=== PATIENT | male | born 1980 | race Caucasian/White ===

== ENCOUNTER 2018-01-26 17:48 | Emergency (ER) | payer MEDICAID, OTHER ==
[~2018-01-26] VITALS: Ht 188 cm; Wt 98.4 kg
[2018-01-26 18:00] VITALS: BP 149/88
[2018-01-26 18:39] VITALS: BP 136/86
== END 2018-01-26 18:39 | disposition home or self-care (01) ==
LOC: MED 17:48
DX: S60.221A Contusion of right hand, initial encounter (principal); F17.210 Nicotine dependence, cigarettes, uncomplicated; W22.01XA Walked into wall, initial encounter; Y93.89 Activity, other specified; Y92.89 Other specified places as the place of occurrence of the external cause; Y99.8 Other external cause status
CPT/HCPCS: 73130; 99284; Q0092

== ENCOUNTER 2018-03-26 14:54 | Emergency (ER) | payer OTHER ==
[~2018-03-26] VITALS: Ht 188 cm; Wt 95.3 kg
[2018-03-26 15:06] VITALS: BP 129/79
[2018-03-26 15:39] VITALS: BP 128/75
== END 2018-03-26 15:40 | disposition home or self-care (01) ==
LOC: MED 14:54
DX: S21.112A Laceration without foreign body of left front wall of thorax without penetration into thoracic cavity, initial encounter (principal); F17.210 Nicotine dependence, cigarettes, uncomplicated; R03.0 Elevated blood-pressure reading, without diagnosis of hypertension; X58.XXXA Exposure to other specified factors, initial encounter; Y93.89 Activity, other specified; Y92.89 Other specified places as the place of occurrence of the external cause; Y99.8 Other external cause status
CPT/HCPCS: 99281

== ENCOUNTER 2018-06-10 10:36 | Emergency (ER) | payer OTHER ==
[~2018-06-10] VITALS: Ht 185.4 cm; Wt 94.1 kg
[2018-06-10 10:41] VITALS: BP 129/67
--- NOTE | 2018-06-10 11:02 | NUR ---
pt ambulated to bed 4
--- NOTE | 2018-06-10 11:05 | NUR ---
37 YO M BIB SELF C/O BL TESTICULAR PAIN AND SWELLING X 2 DAYS. PT DENIES TRAUMA/INJURY. STATES THE PAIN IS BETTER WHEN SITTING. PAIN 5/10. DENIES N/V/D/FEVER. AMBULATORY W/ STEADY GAIT. ADVIL TAKEN YESTERDAY W/ LITTLE EFFECTIVENESS. PT BED DOWN, AAOX4, VSS, BED RAIL UP X1, ER MD AWARE AND NOTIFIED OF PATIENT STATUS. HX DENIES RX DENIES
--- NOTE | 2018-06-10 11:20 | NUR ---
Patient being evaluated by physician at bedside.
--- NOTE | 2018-06-10 11:27 | NUR ---
Everett bahena in [facility] - 06/10/18 at 1129 by FREDIS PT STATES AIYANA TESTICULAR REDNESS, EDEMA, DENIES ITCHING, DRAINAGE, BURNING WHILE URINATING.
--- NOTE | 2018-06-10 11:27 | NUR ---
PT STATES AIYANA TESTICULAR REDNESS, EDEMA, DENIES ITCHING, DRAINAGE, BURNING WHILE URINATING.
--- NOTE | 2018-06-10 11:29 | NUR ---
AIYANA TESTICULAR TENDER TO TOUCH, NO REDNESS OR EDEMA.
[2018-06-10 11:40] LABS: APPEARANCE,URINE SLIGHTLY HAZY (CLEAR); COLOR,URINE YELLOW (YELLOW)
[2018-06-10 11:41] LABS: BILIRUBIN,URINE NEGATIVE (NEGATIVE); BLOOD, URINE NEGATIVE (NEGATIVE); LEUKOCYTE ESTERASE ,URINE TRACE (NEGATIVE); NITRITE, URINE NEGATIVE (NEGATIVE); UGLUCOSE NEGATIVE (NEGATIVE)
[2018-06-10 11:43] LABS: RBC,URINE 0-5 (RARE) /HPF (0-5)
[2018-06-10] MEDS ORDERED: cefTRIAXone 1,000 MG in LIDOCAINE MPF 1% - 5 mL VIAL 2.1 ML IM ONE (13:20)
[2018-06-10 14:13] VITALS: BP 127/85
--- NOTE | 2018-06-10 14:16 | NUR ---
Patient discharged with v/s stable. Written and verbal after care instructions given and explained. Patient alert, oriented and verbalized understanding of instructions. Ambulatory with steady gait. All questions addressed prior to discharge. ID band removed. Patient advised to follow up with PMD. Rx of NORCO MORTIN CLINDAMYCIN given. Patient educated on indication of medication including possible reaction and side effects. Opportunity to ask questions provided and answered.
[2018-06-12 06:10] LABS: CHLAMYDIA TRACHOMATIS AMP DNA Negative (Negative)
== END 2018-06-10 14:13 | disposition home or self-care (01) ==
LOC: MED 10:36
DX: N45.1 Epididymitis (principal); N43.3 Hydrocele, unspecified
CPT/HCPCS: 36415; 76870; 81001; 87086; 87491; 96372; 99284; J0696; J2001; Q0092